=== PATIENT | female | born 1945 | race Caucasian/White ===

== ENCOUNTER 2022-03-30 11:44 | Inpatient (IN) | payer MEDICARE, OTHER ==
[2022-03-30 12:04] LABS: #Eosinphils 0.1 thou/uL (0.0-0.7); #Lymphocytes 1.9 thou/uL (1.20-3.40); #Monocytes 0.8 thou/uL (0.11-0.59); #Neutrophils 7.5 thou/uL (1.40-6.50); %Basophils 0.2 % (0.0-1.0); %Eosinophils 0.8 % (0.0-10.0); %Lymphocytes 18.7 % (21.0-51.0); %Monocytes 7.8 % (0.0-10.0); %Neutrophils 72.5 % (42.0-75.0); Hemoglobin 14.6 g/dL (12.0-16.0); Mean Corpuscular HGB CONC 32.4 g/dL (32.0-36.0); Mean Corpuscular Hemoglobin 31.2 pg (27.0-31.0); Mean Corpuscular Volume 96.1 fL (78.0-98.0); Mean Platelet Volume 7.6 fL (7.4-10.4); Platelet Count 331 thou/uL (130-400); RBC Distribution Width 12.9 % (11.5-14.5); Red Blood Cell (RBC) Count 4.69 mill/uL (4.20-5.40); White Blood Cell (WBC) Count 10.3 thou/uL (4.8-10.8)
[2022-03-30] MEDS ORDERED: Labetalol HCl 100 MG/20 ML VIAL ONE ×2 (12:07→13:20)
[2022-03-30] MEDS ORDERED: Tenecteplase 50 MG - STEMI KIT ONE (12:07)
[2022-03-30 12:19] LABS: Prothrombin Time 13.3 sec (12.0-14.7)
[2022-03-30 12:20] LABS: PTT 25.4 sec (22.9-36.1)
[2022-03-30 12:48] LABS: Albumin 4.2 g/dL (3.4-4.8)
[2022-03-30 12:50] LABS: Calcium 9.9 mg/dL (7.8-10.44); Chloride 104 mmol/L (98-107); Potassium 3.8 mmol/L (3.5-5.1); Sodium 138 mmol/L (136-145)
[2022-03-30 12:51] LABS: Glucose 116 mg/dL (83-110); Protein, Total 7.2 g/dL (5.8-8.1)
[2022-03-30 12:52] LABS: Anion Gap 18 mmol/L (10-20); Carbon Dioxide 20 mmol/L (23-31)
[2022-03-30 12:53] LABS: Bilirubin, Total 0.4 mg/dL (0.2-1.2)
[2022-03-30 12:54] LABS: Alkaline Phosphatase 54 U/L (40-110); Calc. Creatinine Clearance 0 mL/min (70-130); Estimated GFR 77
[2022-03-30 12:55] LABS: BUN (Urea Nitrogen) 20 mg/dL (9.8-20.1)
[2022-03-30 12:56] LABS: AST (SGOT) 18 U/L (5-34)
[2022-03-30 12:57] LABS: ALT (SGPT) 11 U/L (8-55)
[2022-03-30 13:11] LABS: SARS-CoV-2 NAA Rapid Test Not Detected (NotDetected)
[2022-03-30] MEDS ORDERED: niCARdipine 25 MG/10 ML VIAL ONE (13:49)
[2022-03-30] MEDS ORDERED: Iopamidol 370 76% 50 ML VIAL FS ONE (14:31)
[2022-03-30] MEDS ORDERED: methylPREDNISolone Sod Succ/PF 125 MG/2 ML VIAL IVP SCH (17:00)
[2022-03-30] MEDS ORDERED: diphenhydrAMINE 50 MG/ML VIAL IVP SCH (17:00)
[2022-03-30] MEDS: Famotidine/PF 20 mg/2ml Vial SLOW IVP SCH (17:07)
[2022-03-30] MEDS ORDERED: Racepinephrine 2.25% 0.5 ML NEB ONE (17:07)
[2022-03-30] MEDS: Fluticasone Propionate Nasal Spray 16 gm Bottle NASAL SCH (17:11)
[2022-03-30] MEDS ORDERED: Racepinephrine 2.25% 0.5 ML NEB NEB SCH (17:30)
[2022-03-30] MEDS: Communication Order-Pharmacy FS SCH (18:27)
[2022-03-30] MEDS: Sodium Chloride 0.9% 1,000 ML IV SCH (18:50)
[2022-03-30] MEDS: hydrALAZINE 20 MG/ML VIAL SLOW IVP PRN (19:52)
[2022-03-30] MEDS: Atorvastatin Calcium 40 MG TAB PO SCH (21:29)
[2022-03-31] MEDS: hydrALAZINE 20 MG/ML VIAL SLOW IVP PRN ×2 (03:35→15:18)
[2022-03-31 03:53] LABS: #Lymphocytes 1.2 thou/uL (1.20-3.40); #Monocytes 0.1 thou/uL (0.11-0.59); #Neutrophils 10.5 thou/uL (1.40-6.50); %Basophils 0.3 % (0.0-1.0); %Eosinophils 0.1 % (0.0-10.0); %Lymphocytes 9.8 % (21.0-51.0); %Neutrophils 88.9 % (42.0-75.0); Mean Corpuscular HGB CONC 32.5 g/dL (32.0-36.0); Mean Corpuscular Hemoglobin 31.5 pg (27.0-31.0); Mean Corpuscular Volume 96.8 fL (78.0-98.0); Mean Platelet Volume 7.8 fL (7.4-10.4); Platelet Count 349 thou/uL (130-400); Red Blood Cell (RBC) Count 4.76 mill/uL (4.20-5.40); White Blood Cell (WBC) Count 11.9 thou/uL (4.8-10.8)
[2022-03-31 04:04] LABS: Hemoglobin A1c 5.6 % (4.0-6.0)
[2022-03-31 04:05] LABS: Anion Gap 20 mmol/L (10-20); BUN (Urea Nitrogen) 17 mg/dL (9.8-20.1); Calc. Creatinine Clearance 49 mL/min (70-130); Calcium 9.5 mg/dL (7.8-10.44); Carbon Dioxide 21 mmol/L (23-31); Cholesterol 230 mg/dl (< 200 Desired); Estimated GFR 71; HDL Cholesterol 57 mg/dL (>60 Neg Risk); LDL Cholesterol, Calculated 156 mg/dL; Potassium 4.8 mmol/L (3.5-5.1); Triglycerides 83 mg/dL (Less than 150)
[2022-03-31 04:06] LABS: Chloride 105 mmol/L (98-107); Glucose 199 mg/dL (83-110); Sodium 141 mmol/L (136-145)
[2022-03-31] MEDS: Sodium Chloride 0.9% 1,000 ML IV SCH ×2 (06:47→14:00)
[2022-03-31] MEDS ORDERED: FLU VACC QS2022-23(65YR UP)/PF 240 MCG/0.7 ML SYRINGE IM ONE (09:00)
[2022-03-31] MEDS: Labetalol HCl 100 MG/20 ML VIAL SLOW IVP PRN ×2 (13:04→14:57)
[2022-03-31] MEDS ORDERED: Aspirin 300 MG Suppository PR SCH (15:00)
[2022-03-31] MEDS: Famotidine/PF 20 mg/2ml Vial SLOW IVP SCH (18:14)
[2022-03-31] MEDS: Communication Order-Pharmacy FS SCH (18:24)
[2022-03-31] MEDS: Atorvastatin Calcium 40 MG TAB PO SCH (19:43)
[2022-04-01] MEDS: Labetalol HCl 100 MG/20 ML VIAL SLOW IVP PRN ×3 (00:06→21:16)
[2022-04-01] MEDS: Sodium Chloride 0.9% 1,000 ML IV SCH ×2 (02:06→17:07)
[2022-04-01] MEDS: hydrALAZINE 20 MG/ML VIAL SLOW IVP PRN ×3 (07:38→23:09)
[2022-04-01] MEDS: Aspirin 300 MG Suppository PR SCH (08:52)
[2022-04-01] MEDS ORDERED: Enoxaparin Sodium 40 MG/0.4 ML SYRINGE SC SCH (09:45)
[2022-04-01 09:59] LABS: #Lymphocytes 1.4 thou/uL (1.20-3.40); #Monocytes 1.2 thou/uL (0.11-0.59); #Neutrophils 15.1 thou/uL (1.40-6.50); %Basophils 0.1 % (0.0-1.0); %Eosinophils 0.2 % (0.0-10.0); %Lymphocytes 7.9 % (21.0-51.0); %Monocytes 6.6 % (0.0-10.0); %Neutrophils 85.3 % (42.0-75.0); Hemoglobin 14.9 g/dL (12.0-16.0); Mean Corpuscular HGB CONC 32.5 g/dL (32.0-36.0); Mean Corpuscular Hemoglobin 31.3 pg (27.0-31.0); Mean Corpuscular Volume 96.2 fL (78.0-98.0); Mean Platelet Volume 7.7 fL (7.4-10.4); Platelet Count 298 thou/uL (130-400); RBC Distribution Width 13.1 % (11.5-14.5); Red Blood Cell (RBC) Count 4.77 mill/uL (4.20-5.40); White Blood Cell (WBC) Count 17.7 thou/uL (4.8-10.8)
[2022-04-01 10:17] LABS: Anion Gap 16 mmol/L (10-20); BUN (Urea Nitrogen) 16 mg/dL (9.8-20.1); Calc. Creatinine Clearance 64 mL/min (70-130); Carbon Dioxide 19 mmol/L (23-31); Chloride 107 mmol/L (98-107); Estimated GFR 91; Glucose 123 mg/dL (83-110); Potassium 3.7 mmol/L (3.5-5.1); Sodium 138 mmol/L (136-145)
[2022-04-01] MEDS ORDERED: Famotidine/PF 20 mg/2ml Vial SLOW IVP SCH (11:45)
[2022-04-01] MEDS ORDERED: Mannitol 12.5 GM/50 ML SLOW IVP SCH (13:30)
[2022-04-01] MEDS: Fluticasone Propionate Nasal Spray 16 gm Bottle NASAL SCH (17:06)
[2022-04-01] MEDS: Atorvastatin Calcium 40 MG TAB PO SCH (20:47)
[2022-04-01] MEDS ORDERED: Sodium Bicarbonate Tab 325 MG TAB PER TUBE PRN (21:00)
[2022-04-01] MEDS ORDERED: Pancrelipase DR 12,000 1 CAP FS PRN (21:00)
[2022-04-01] MEDS: Famotidine/PF 20 mg/2ml Vial SLOW IVP SCH (21:16)
[2022-04-02] MEDS: Labetalol HCl 100 MG/20 ML VIAL SLOW IVP PRN ×5 (03:02→16:14)
[2022-04-02] MEDS: Sodium Chloride 0.9% 1,000 ML IV SCH ×2 (03:07→23:34)
[2022-04-02] MEDS: hydrALAZINE 20 MG/ML VIAL SLOW IVP PRN ×3 (04:14→11:39)
[2022-04-02] MEDS: Aspirin 300 MG Suppository PR SCH ×2 (08:16→10:33)
[2022-04-02] MEDS: Enoxaparin Sodium 40 MG/0.4 ML SYRINGE SC SCH (08:16)
[2022-04-02] MEDS: Famotidine/PF 20 mg/2ml Vial SLOW IVP SCH ×2 (08:16→20:22)
[2022-04-02] MEDS ORDERED: Lisinopril 20 MG TAB PO SCH (09:45)
[2022-04-02] MEDS ORDERED: Aspirin Chewable 81 MG TAB PER TUBE SCH (09:45)
[2022-04-02] MEDS ORDERED: Metoprolol Tartrate 25 MG TAB PER TUBE SCH (10:00)
[2022-04-02] MEDS ORDERED: Amlodipine 5 MG TAB PO SCH (11:30)
[2022-04-02 17:42] LABS: Actual Bicarbonate (HCO3a) 20.2 mEq/L (22-28); Base Excess (BEa) -1.3 mEq/L (-2.0 to +3.0); CO2 Tension 26.3 mmHg (35.0-45.0); Calcium, Ionized (arterial) 1.15 mmol/L (1.12-1.30); Carboxyhemoglobin (COHb) 0.7 gm% (0.0-3.0); Hemoglobin (Hb) 14.8 g/dL (12.0-16.0); Potassium - ABG Lab 3.27 mmol/L (3.70-5.30)
[2022-04-02] MEDS ORDERED: Lorazepam 2 MG/ML VIAL SLOW IVP SCH (17:45)
[2022-04-02] MEDS ORDERED: EPINEPHrine 1 MG/10 ML Abboject SYRINGE IVP SCH (17:45)
[2022-04-02 17:47] LABS: ALV-art Gradient 57.555 mmHg (0-20); O2 Tension (PaO2), arterial 59.3 mmHg (> 70.0); Puncture Site RRA
[2022-04-02] MEDS ORDERED: EPINEPHrine 1 MG/ML AMP IM SCH (18:00)
[2022-04-02] MEDS ORDERED: methylPREDNISolone Sod Succ/PF 125 MG/2 ML VIAL IVP SCH (18:00)
[2022-04-02] MEDS ORDERED: diphenhydrAMINE 50 MG/ML VIAL IVP SCH (18:00)
[2022-04-02] MEDS: Fluticasone Propionate Nasal Spray 16 gm Bottle NASAL SCH (18:44)
[2022-04-02] MEDS: niCARdipine 25 MG in Sodium Chloride 0.9% 250 ML 250 ML IVPB PRN (20:00)
[2022-04-02] MEDS: Metoprolol Tartrate 25 MG TAB PER TUBE SCH (20:22)
[2022-04-02] MEDS: Atorvastatin Calcium 40 MG TAB PO SCH (20:24)
[2022-04-02] MEDS: Racepinephrine 2.25% 0.5 ML NEB NEB SCH (22:20)
[2022-04-02] MEDS: methylPREDNISolone Sod Succ 40 MG VIAL IVP SCH (23:34)
[2022-04-03] MEDS: methylPREDNISolone Sod Succ 40 MG VIAL IVP SCH ×3 (06:05→18:12)
[2022-04-03] MEDS: niCARdipine 25 MG in Sodium Chloride 0.9% 250 ML 250 ML IVPB PRN (06:05)
[2022-04-03] MEDS: Racepinephrine 2.25% 0.5 ML NEB NEB SCH (06:53)
[2022-04-03] MEDS ORDERED: Amlodipine 5 MG TAB PO SCH (09:00)
[2022-04-03] MEDS ORDERED: methylPREDNISolone Sod Succ/PF 125 MG/2 ML VIAL IVP SCH (09:00)
[2022-04-03 09:14] LABS: #Lymphocytes 0.9 thou/uL (1.20-3.40); #Monocytes 0.4 thou/uL (0.11-0.59); #Neutrophils 10.7 thou/uL (1.40-6.50); %Basophils 0.2 % (0.0-1.0); %Eosinophils 0.1 % (0.0-10.0); %Lymphocytes 7.2 % (21.0-51.0); %Monocytes 3.1 % (0.0-10.0); %Neutrophils 89.3 % (42.0-75.0); Hemoglobin 14.2 g/dL (12.0-16.0); Mean Corpuscular HGB CONC 34.2 g/dL (32.0-36.0); Mean Corpuscular Hemoglobin 32.8 pg (27.0-31.0); Platelet Count 312 thou/uL (130-400); Red Blood Cell (RBC) Count 4.31 mill/uL (4.20-5.40)
[2022-04-03 09:24] LABS: Anion Gap 14 mmol/L (10-20); BUN (Urea Nitrogen) 23 mg/dL (9.8-20.1); Calc. Creatinine Clearance 74 mL/min (70-130); Calcium 8.5 mg/dL (7.8-10.44); Carbon Dioxide 20 mmol/L (23-31); Chloride 109 mmol/L (98-107); Estimated GFR 93; Glucose 152 mg/dL (83-110); Potassium 3.1 mmol/L (3.5-5.1); Sodium 140 mmol/L (136-145)
[2022-04-03] MEDS: Amlodipine 5 MG TAB PO SCH (09:49)
[2022-04-03] MEDS: Metoprolol Tartrate 25 MG TAB PER TUBE SCH ×2 (09:50→20:23)
[2022-04-03] MEDS: Lisinopril 20 MG TAB PO SCH (09:50)
[2022-04-03] MEDS: Famotidine/PF 20 mg/2ml Vial SLOW IVP SCH ×2 (09:50→20:22)
[2022-04-03] MEDS: Aspirin Chewable 81 MG TAB PER TUBE SCH (09:50)
[2022-04-03] MEDS: Enoxaparin Sodium 40 MG/0.4 ML SYRINGE SC SCH (09:51)
[2022-04-03] MEDS: Sodium Chloride 0.9% 1,000 ML IV SCH (11:47)
[2022-04-03] MEDS ORDERED: Electrolyte Replacement Protocol FS PRN (12:10)
[2022-04-03] MEDS ORDERED: Potassium Chloride 20 MEQ TAB PER TUBE SCH (12:30)
[2022-04-03] MEDS: Potassium Chloride 20 MEQ in Premix Bag 1 BAG IVPB SCH ×2 (15:00→15:54)
[2022-04-03] MEDS: Fluticasone Propionate Nasal Spray 16 gm Bottle NASAL SCH (18:14)
[2022-04-03] MEDS: Labetalol HCl 100 MG/20 ML VIAL SLOW IVP PRN (20:22)
[2022-04-03] MEDS: Atorvastatin Calcium 40 MG TAB PO SCH (20:23)
[2022-04-03 20:49] LABS: Potassium 3.5 mmol/L (3.5-5.1)
[2022-04-03] MEDS: hydrALAZINE 20 MG/ML VIAL SLOW IVP PRN (21:27)
[2022-04-04] MEDS: methylPREDNISolone Sod Succ 40 MG VIAL IVP SCH ×4 (00:37→16:58)
[2022-04-04] MEDS: Sodium Chloride 0.9% 1,000 ML IV SCH (00:37)
[2022-04-04] MEDS: Labetalol HCl 100 MG/20 ML VIAL SLOW IVP PRN (01:09)
[2022-04-04 04:10] LABS: Phosphorus 2.3 mg/dL (2.3-4.7)
[2022-04-04 04:11] LABS: Anion Gap 14 mmol/L (10-20); BUN (Urea Nitrogen) 31 mg/dL (9.8-20.1); Calc. Creatinine Clearance 63 mL/min (70-130); Calcium 8.9 mg/dL (7.8-10.44); Carbon Dioxide 21 mmol/L (23-31); Chloride 110 mmol/L (98-107); Estimated GFR 89; Glucose 175 mg/dL (83-110); Magnesium 2.3 mg/dL (1.6-2.6); Potassium 3.4 mmol/L (3.5-5.1); Sodium 142 mmol/L (136-145)
[2022-04-04] MEDS: hydrALAZINE 20 MG/ML VIAL SLOW IVP PRN ×2 (04:16→17:02)
[2022-04-04 04:21] LABS: Band 8 % (5-11); Hemoglobin 14.1 g/dL (12.0-16.0); Lymphocytes 7 % (21-51); MDiff Complete? YES; Mean Corpuscular HGB CONC 33.6 g/dL (32.0-36.0); Mean Corpuscular Hemoglobin 32.7 pg (27.0-31.0); Mean Corpuscular Volume 97.3 fL (78.0-98.0); Mean Platelet Volume 8.5 fL (7.4-10.4); Monocytes 2 % (0-10); Neutrophil 83 % (42-75); Platelet Count 336 thou/uL (130-400); Platelet Morphology Comment Appears Adequate; RBC Morphology Normal; White Blood Cell (WBC) Count 15.1 thou/uL (4.8-10.8)
[2022-04-04] MEDS ORDERED: Potassium Chloride 20 MEQ TAB PO SCH (08:00)
[2022-04-04] MEDS: Enoxaparin Sodium 40 MG/0.4 ML SYRINGE SC SCH (08:32)
[2022-04-04] MEDS: Famotidine/PF 20 mg/2ml Vial SLOW IVP SCH (08:32)
[2022-04-04] MEDS: Aspirin Chewable 81 MG TAB PER TUBE SCH (08:32)
[2022-04-04] MEDS: Amlodipine 5 MG TAB PO SCH (08:32)
[2022-04-04] MEDS: Lisinopril 20 MG TAB PO SCH (08:32)
[2022-04-04] MEDS: Metoprolol Tartrate 25 MG TAB PER TUBE SCH ×2 (08:33→20:48)
[2022-04-04] MEDS: Fluticasone Propionate Nasal Spray 16 gm Bottle NASAL SCH (16:58)
[2022-04-04] MEDS: Famotidine 20 MG TAB PER TUBE SCH (20:47)
[2022-04-04] MEDS: Atorvastatin Calcium 40 MG TAB PO SCH (20:47)
[2022-04-04] MEDS: Acetaminophen 650 MG/20.3 ML UDCUP PO PRN (20:48)
[2022-04-05] MEDS: Scopolamine 1.5 mg/72 hour Patch TD SCH (00:24)
[2022-04-05] MEDS: methylPREDNISolone Sod Succ 40 MG VIAL IVP SCH ×4 (00:25→17:41)
[2022-04-05] MEDS: Labetalol HCl 100 MG/20 ML VIAL SLOW IVP PRN ×3 (02:12→20:12)
[2022-04-05 04:14] LABS: Anion Gap 13 mmol/L (10-20); BUN (Urea Nitrogen) 43 mg/dL (9.8-20.1); Calc. Creatinine Clearance 63 mL/min (70-130); Calcium 8.7 mg/dL (7.8-10.44); Carbon Dioxide 24 mmol/L (23-31); Chloride 112 mmol/L (98-107); Estimated GFR 89; Glucose 183 mg/dL (83-110); Potassium 3.5 mmol/L (3.5-5.1); Sodium 145 mmol/L (136-145)
[2022-04-05] MEDS: hydrALAZINE 20 MG/ML VIAL SLOW IVP PRN ×2 (04:41→21:46)
[2022-04-05] MEDS ORDERED: Potassium Chloride 20 MEQ TAB PO SCH (08:00)
[2022-04-05] MEDS: Amlodipine 5 MG TAB PO SCH (08:09)
[2022-04-05] MEDS: Aspirin Chewable 81 MG TAB PER TUBE SCH (08:09)
[2022-04-05] MEDS: Famotidine 20 MG TAB PER TUBE SCH ×2 (08:09→20:11)
[2022-04-05] MEDS: Enoxaparin Sodium 40 MG/0.4 ML SYRINGE SC SCH (08:10)
[2022-04-05] MEDS: Lisinopril 20 MG TAB PO SCH (08:10)
[2022-04-05] MEDS: Metoprolol Tartrate 25 MG TAB PER TUBE SCH ×2 (08:10→20:11)
[2022-04-05 12:12] LABS: Potassium 3.8 mmol/L (3.5-5.1)
[2022-04-05] MEDS: Fluticasone Propionate Nasal Spray 16 gm Bottle NASAL SCH (18:28)
[2022-04-05] MEDS: Atorvastatin Calcium 40 MG TAB PO SCH (20:11)
[2022-04-05] MEDS: Acetaminophen 650 MG/20.3 ML UDCUP PO PRN (20:11)
[2022-04-05] MEDS: Polyethylene Glycol 3350 17 GM Packet PO SCH (20:12)
[2022-04-05] MEDS: Senokot S 8.6-50 MG TAB PO SCH (20:12)
[2022-04-06] MEDS: methylPREDNISolone Sod Succ 40 MG VIAL IVP SCH ×4 (02:29→16:37)
[2022-04-06] MEDS: Labetalol HCl 100 MG/20 ML VIAL SLOW IVP PRN ×4 (04:17→20:22)
[2022-04-06 05:15] LABS: Band 3 % (5-11); Hemoglobin 14.1 g/dL (12.0-16.0); Lymphocytes 12 % (21-51); MDiff Complete? YES; Mean Corpuscular HGB CONC 32.9 g/dL (32.0-36.0); Mean Corpuscular Hemoglobin 32.2 pg (27.0-31.0); Mean Corpuscular Volume 97.9 fL (78.0-98.0); Mean Platelet Volume 8.5 fL (7.4-10.4); Metamyelocyte 1 % (0-0); Monocytes 15 % (0-10); Neutrophil 69 % (42-75); Platelet Count 339 thou/uL (130-400); Platelet Morphology Comment Appears Adequate; RBC Distribution Width 13.2 % (11.5-14.5); RBC Morphology Normal; Red Blood Cell (RBC) Count 4.38 mill/uL (4.20-5.40); White Blood Cell (WBC) Count 11.9 thou/uL (4.8-10.8)
[2022-04-06] MEDS: hydrALAZINE 20 MG/ML VIAL SLOW IVP PRN ×2 (05:29→22:07)
[2022-04-06 07:56] LABS: Anion Gap 13 mmol/L (10-20); BUN (Urea Nitrogen) 42 mg/dL (9.8-20.1); Calc. Creatinine Clearance 62 mL/min (70-130); Calcium 8.3 mg/dL (7.8-10.44); Carbon Dioxide 25 mmol/L (23-31); Chloride 114 mmol/L (98-107); Estimated GFR 89; Glucose 185 mg/dL (83-110); Potassium 3.5 mmol/L (3.5-5.1); Sodium 148 mmol/L (136-145)
[2022-04-06] MEDS ORDERED: Potassium Chloride 20 MEQ TAB PO SCH (09:00)
[2022-04-06] MEDS: Acetaminophen 650 MG/20.3 ML UDCUP PO PRN ×2 (09:36→18:17)
[2022-04-06] MEDS: Amlodipine 5 MG TAB PO SCH (09:36)
[2022-04-06] MEDS: Aspirin Chewable 81 MG TAB PER TUBE SCH (09:36)
[2022-04-06] MEDS: Famotidine 20 MG TAB PER TUBE SCH ×2 (09:37→21:21)
[2022-04-06] MEDS: Metoprolol Tartrate 25 MG TAB PER TUBE SCH ×2 (09:38→21:21)
[2022-04-06] MEDS: Lisinopril 20 MG TAB PO SCH (09:38)
[2022-04-06] MEDS: Enoxaparin Sodium 40 MG/0.4 ML SYRINGE SC SCH (09:39)
[2022-04-06] MEDS: Senokot S 8.6-50 MG TAB PO SCH ×2 (09:41→21:26)
[2022-04-06] MEDS: Potassium Chloride 20 MEQ in Premix Bag 1 BAG IVPB SCH ×2 (14:10→16:36)
[2022-04-06] MEDS: Fluticasone Propionate Nasal Spray 16 gm Bottle NASAL SCH (16:37)
[2022-04-06] MEDS: Ampicillin/Sulbactam 1.5 GM in Sodium Chloride 0.9% 100 ML IVPB SCH ×2 (18:17→21:22)
[2022-04-06] MEDS: Atorvastatin Calcium 40 MG TAB PO SCH (21:21)
[2022-04-06] MEDS: Polyethylene Glycol 3350 17 GM Packet PO SCH (21:23)
[2022-04-07] MEDS: methylPREDNISolone Sod Succ 40 MG VIAL IVP SCH ×4 (00:07→18:00)
[2022-04-07] MEDS: Labetalol HCl 100 MG/20 ML VIAL SLOW IVP PRN ×4 (02:31→20:54)
[2022-04-07] MEDS: Ampicillin/Sulbactam 1.5 GM in Sodium Chloride 0.9% 100 ML IVPB SCH ×4 (03:02→21:23)
[2022-04-07] MEDS: Acetaminophen 650 MG/20.3 ML UDCUP PO PRN ×2 (03:14→15:49)
[2022-04-07] MEDS: hydrALAZINE 20 MG/ML VIAL SLOW IVP PRN ×3 (04:16→22:12)
[2022-04-07] MEDS: Lisinopril 20 MG TAB PO SCH (08:55)
[2022-04-07] MEDS: Metoprolol Tartrate 25 MG TAB PER TUBE SCH ×2 (08:55→21:26)
[2022-04-07] MEDS: Aspirin Chewable 81 MG TAB PER TUBE SCH (08:55)
[2022-04-07] MEDS: Amlodipine 5 MG TAB PO SCH (08:55)
[2022-04-07] MEDS: Famotidine 20 MG TAB PER TUBE SCH ×2 (08:55→21:25)
[2022-04-07] MEDS: Enoxaparin Sodium 40 MG/0.4 ML SYRINGE SC SCH (08:56)
[2022-04-07] MEDS: Senokot S 8.6-50 MG TAB PO SCH ×2 (08:59→21:26)
[2022-04-07] MEDS ORDERED: Labetalol HCl 100 MG/20 ML VIAL ONE (10:34)
[2022-04-07] MEDS ORDERED: PROPOFOL 200 MG/20 ML VIAL ONE (11:20)
[2022-04-07] MEDS ORDERED: Promethazine HCl 25 MG/ML VIAL IM PRN (11:50)
[2022-04-07] MEDS ORDERED: Ondansetron HCl/PF 4 MG/2 ML Vial IVP PRN (11:50)
[2022-04-07] MEDS ORDERED: Promethazine HCl 25 MG/ML VIAL IVPB PRN (11:50)
[2022-04-07] MEDS ORDERED: Ketamine 50 MG/ML (10ML VIAL) ONE (11:51)
[2022-04-07] MEDS: Fluticasone Propionate Nasal Spray 16 gm Bottle NASAL SCH (15:51)
[2022-04-07] MEDS: Atorvastatin Calcium 40 MG TAB PO SCH (21:25)
[2022-04-07] MEDS: Polyethylene Glycol 3350 17 GM Packet PO SCH (21:26)
[2022-04-08] MEDS: methylPREDNISolone Sod Succ 40 MG VIAL IVP SCH ×5 (00:58→23:07)
[2022-04-08] MEDS: Scopolamine 1.5 mg/72 hour Patch TD SCH (01:06)
[2022-04-08] MEDS: hydrALAZINE 20 MG/ML VIAL SLOW IVP PRN ×3 (02:07→16:54)
[2022-04-08] MEDS: Ampicillin/Sulbactam 1.5 GM in Sodium Chloride 0.9% 100 ML IVPB SCH ×4 (04:05→21:47)
[2022-04-08] MEDS: Labetalol HCl 100 MG/20 ML VIAL SLOW IVP PRN (04:06)
[2022-04-08] MEDS: Metoprolol Tartrate 25 MG TAB PER TUBE SCH ×2 (09:29→21:49)
[2022-04-08] MEDS: Famotidine 20 MG TAB PER TUBE SCH ×2 (09:29→21:48)
[2022-04-08] MEDS: Amlodipine 5 MG TAB PO SCH (09:30)
[2022-04-08] MEDS: Enoxaparin Sodium 40 MG/0.4 ML SYRINGE SC SCH (09:31)
[2022-04-08] MEDS: Aspirin Chewable 81 MG TAB PER TUBE SCH (09:31)
[2022-04-08] MEDS: Lisinopril 20 MG TAB PO SCH (09:31)
[2022-04-08] MEDS: Acetaminophen 650 MG/20.3 ML UDCUP PO PRN (09:32)
[2022-04-08] MEDS: Senokot S 8.6-50 MG TAB PO SCH ×2 (09:34→21:48)
[2022-04-08] MEDS: Fluticasone Propionate Nasal Spray 16 gm Bottle NASAL SCH (16:43)
[2022-04-08] MEDS: Atorvastatin Calcium 40 MG TAB PO SCH (21:48)
[2022-04-08] MEDS: Polyethylene Glycol 3350 17 GM Packet PO SCH (21:49)
[2022-04-08 22:45] LABS: Hemoglobin 13.9 g/dL (12.0-16.0); Mean Corpuscular HGB CONC 31.8 g/dL (32.0-36.0); Mean Corpuscular Hemoglobin 31.3 pg (27.0-31.0); Mean Corpuscular Volume 98.4 fL (78.0-98.0); Mean Platelet Volume 8.3 fL (7.4-10.4); Platelet Count 346 thou/uL (130-400); RBC Distribution Width 13.2 % (11.5-14.5); Red Blood Cell (RBC) Count 4.45 mill/uL (4.20-5.40); White Blood Cell (WBC) Count 17.1 thou/uL (4.8-10.8)
[2022-04-08] MEDS: Acetaminophen 325 MG/10.15 ML UDCUP PO PRN (22:54)
[2022-04-08 23:15] LABS: Lymphocytes 10 % (21-51); MDiff Complete? YES; Monocytes 5 % (0-10); Neutrophil 85 % (42-75); RBC Morphology Normal; Vacuoles SLIGHT
[2022-04-09] MEDS: Ampicillin/Sulbactam 1.5 GM in Sodium Chloride 0.9% 100 ML IVPB SCH ×4 (03:59→21:27)
[2022-04-09] MEDS: methylPREDNISolone Sod Succ 40 MG VIAL IVP SCH ×3 (06:20→17:04)
[2022-04-09] MEDS: Famotidine 20 MG TAB PER TUBE SCH ×2 (09:39→21:27)
[2022-04-09] MEDS: Amlodipine 5 MG TAB PO SCH (09:39)
[2022-04-09] MEDS: Aspirin Chewable 81 MG TAB PER TUBE SCH (09:39)
[2022-04-09] MEDS: Metoprolol Tartrate 25 MG TAB PER TUBE SCH ×2 (09:40→21:27)
[2022-04-09] MEDS: Enoxaparin Sodium 40 MG/0.4 ML SYRINGE SC SCH (09:40)
[2022-04-09] MEDS: Lisinopril 20 MG TAB PO SCH (09:40)
[2022-04-09] MEDS: Acetaminophen 325 MG/10.15 ML UDCUP PO PRN ×2 (09:41→16:53)
[2022-04-09] MEDS: Senokot S 8.6-50 MG TAB PO SCH ×2 (09:42→21:27)
[2022-04-09] MEDS: Fluticasone Propionate Nasal Spray 16 gm Bottle NASAL SCH (17:05)
[2022-04-09] MEDS ORDERED: Dextrose 5% in Water 1,000 ML IV PRN (20:00)
[2022-04-09] MEDS ORDERED: Dextrose 50% Abboject 50 ML SYRINGE IVP PRN (20:00)
[2022-04-09] MEDS ORDERED: Morphine 4 MG/ML VIAL SLOW IVP SCH (21:00)
[2022-04-09] MEDS: Atorvastatin Calcium 40 MG TAB PO SCH (21:27)
[2022-04-09] MEDS: Polyethylene Glycol 3350 17 GM Packet PO SCH (21:51)
[2022-04-10] MEDS: methylPREDNISolone Sod Succ 40 MG VIAL IVP SCH ×4 (00:23→17:16)
[2022-04-10] MEDS: HumaLOG 300 UNITS/3 ML VIAL SC PRN ×2 (00:26→06:40)
[2022-04-10] MEDS: Ampicillin/Sulbactam 1.5 GM in Sodium Chloride 0.9% 100 ML IVPB SCH ×4 (03:34→21:26)
[2022-04-10] MEDS: Amlodipine 5 MG TAB PO SCH (09:09)
[2022-04-10] MEDS: Senokot S 8.6-50 MG TAB PO SCH ×2 (09:09→21:28)
[2022-04-10] MEDS: Metoprolol Tartrate 25 MG TAB PER TUBE SCH ×2 (09:10→21:26)
[2022-04-10] MEDS: Lisinopril 20 MG TAB PO SCH (09:10)
[2022-04-10] MEDS: Aspirin Chewable 81 MG TAB PER TUBE SCH (09:10)
[2022-04-10] MEDS: Famotidine 20 MG TAB PER TUBE SCH ×2 (09:10→21:26)
[2022-04-10] MEDS: Enoxaparin Sodium 40 MG/0.4 ML SYRINGE SC SCH (09:10)
[2022-04-10] MEDS: Acetaminophen 325 MG/10.15 ML UDCUP PO PRN ×2 (12:54→21:38)
[2022-04-10] MEDS: Fluticasone Propionate Nasal Spray 16 gm Bottle NASAL SCH (17:16)
[2022-04-10] MEDS: Atorvastatin Calcium 40 MG TAB PO SCH (21:26)
[2022-04-10] MEDS: Polyethylene Glycol 3350 17 GM Packet PO SCH (21:28)
[2022-04-11] MEDS: methylPREDNISolone Sod Succ 40 MG VIAL IVP SCH ×3 (00:08→13:44)
[2022-04-11] MEDS: HumaLOG 300 UNITS/3 ML VIAL SC PRN ×2 (00:08→06:11)
[2022-04-11] MEDS: Scopolamine 1.5 mg/72 hour Patch TD SCH (02:29)
[2022-04-11] MEDS: Ampicillin/Sulbactam 1.5 GM in Sodium Chloride 0.9% 100 ML IVPB SCH ×4 (02:30→21:33)
[2022-04-11] MEDS: Acetaminophen 325 MG/10.15 ML UDCUP PO PRN ×2 (06:06→18:39)
[2022-04-11] MEDS: Lisinopril 20 MG TAB PO SCH (09:25)
[2022-04-11] MEDS: Aspirin Chewable 81 MG TAB PER TUBE SCH (09:25)
[2022-04-11] MEDS: Famotidine 20 MG TAB PER TUBE SCH ×2 (09:25→23:28)
[2022-04-11] MEDS: Amlodipine 5 MG TAB PO SCH (09:25)
[2022-04-11] MEDS: Enoxaparin Sodium 40 MG/0.4 ML SYRINGE SC SCH (09:26)
[2022-04-11] MEDS: Metoprolol Tartrate 25 MG TAB PER TUBE SCH ×2 (09:26→21:00)
[2022-04-11] MEDS: Senokot S 8.6-50 MG TAB PO SCH ×2 (09:26→21:32)
[2022-04-11] MEDS ORDERED: Iopamidol-370 76% 500 ML 1 ML ONE (12:16)
[2022-04-11 12:36] VITALS: BMI 23.3
[2022-04-11 13:24] LABS: Anion Gap 16 mmol/L (10-20); BUN (Urea Nitrogen) 59 mg/dL (9.8-20.1); Calc. Creatinine Clearance 48 mL/min (70-130); Calcium 8.3 mg/dL (7.8-10.44); Carbon Dioxide 22 mmol/L (23-31); Chloride 118 mmol/L (98-107); Estimated GFR 61; Glucose 250 mg/dL (83-110); Potassium 3.7 mmol/L (3.5-5.1); Sodium 152 mmol/L (136-145)
[2022-04-11 13:29] LABS: Band 4 % (5-11); Hemoglobin 14.2 g/dL (12.0-16.0); Lymphocytes 3 % (21-51); MDiff Complete? YES; Mean Corpuscular HGB CONC 31.9 g/dL (32.0-36.0); Mean Corpuscular Hemoglobin 31.5 pg (27.0-31.0); Mean Corpuscular Volume 98.6 fL (78.0-98.0); Mean Platelet Volume 8.9 fL (7.4-10.4); Monocytes 11 % (0-10); Neutrophil 82 % (42-75); Platelet Count 319 thou/uL (130-400); Platelet Morphology Comment Appears Adequate; Polychromasia SLIGHT = 2-3 cells (100X) (0-2/hpf); RBC Distribution Width 13.1 % (11.5-14.5); Red Blood Cell (RBC) Count 4.53 mill/uL (4.20-5.40); White Blood Cell (WBC) Count 29.7 thou/uL (4.8-10.8)
[2022-04-11] MEDS ORDERED: traMADol HCl 50 MG TAB PER TUBE PRN (14:52)
[2022-04-11 16:28] VITALS: TEMP 98.7
[2022-04-11] MEDS: Acetylcysteine 10% 100 MG/ML 30 ml Vial INH SCH (18:55)
[2022-04-11] MEDS: Fluticasone Propionate Nasal Spray 16 gm Bottle NASAL SCH (19:17)
[2022-04-11] MEDS ORDERED: Sodium Chloride 0.9% 500 ML IVPB SCH (21:15)
[2022-04-11] MEDS: Polyethylene Glycol 3350 17 GM Packet PO SCH (21:32)
[2022-04-11 22:01] LABS: Hemoglobin 14.2 g/dL (12.0-16.0); Mean Corpuscular Hemoglobin 31.1 pg (27.0-31.0); Mean Platelet Volume 9.2 fL (7.4-10.4); Platelet Count 307 thou/uL (130-400); RBC Distribution Width 13.3 % (11.5-14.5); Red Blood Cell (RBC) Count 4.55 mill/uL (4.20-5.40); White Blood Cell (WBC) Count 32.7 thou/uL (4.8-10.8)
[2022-04-11 22:01] LABS: ALT (SGPT) 331 U/L (8-55); AST (SGOT) 181 U/L (5-34); Alkaline Phosphatase 47 U/L (40-110); Anion Gap 19 mmol/L (10-20); BUN (Urea Nitrogen) 71 mg/dL (9.8-20.1); Bilirubin, Total 0.3 mg/dL (0.2-1.2); Calc. Creatinine Clearance 30 mL/min (70-130); Calcium 8.1 mg/dL (7.8-10.44); Carbon Dioxide 21 mmol/L (23-31); Chloride 120 mmol/L (98-107); Estimated GFR 34; Globulin 2.1 g/dL (2.4-3.5); Glucose 262 mg/dL (83-110); Potassium 3.9 mmol/L (3.5-5.1); Protein, Total 5.1 g/dL (5.8-8.1); Sodium 156 mmol/L (136-145)
[2022-04-11] MEDS: guaiFENesin ER 600 MG TAB PO SCH (23:29)
[2022-04-11] MEDS: Atorvastatin Calcium 40 MG TAB PO SCH (23:29)
[2022-04-12] MEDS: Acetylcysteine 10% 100 MG/ML 30 ml Vial INH SCH ×2 (00:28→06:49)
[2022-04-12 00:55] LABS: Bacteria/HPF None Seen HPF (None Seen); Bilirubin Negative (Negative); Blood, Urine Negative (Negative); Clarity Clear (Clear); Glucose, Urine (Dipstick) Normal (Negative); Ketone, Urine Trace mg/dL (Negative); Leukocyte Negative Leu/uL (Negative); Nitrite Negative (Negative); Protein, Urine (Dipstick) 30 mg/dL (Neg-Trace); Squamous Epithelial None Seen HPF (0-3); Urobilinogen Normal mg/dL (Less than 2); pH, Urine 5.5 (5.0-9.0)
[2022-04-12] MEDS ORDERED: VANCOMYCIN 1.25 GM/250 ML BAG IVPB SCH (01:45)
[2022-04-12] MEDS ORDERED: Piperacillin/Tazobactam 3.375 GM in Sodium Chloride 0.9% 100 ML IVPB SCH ×2 (01:45→06:00)
[2022-04-12] MEDS ORDERED: VANCOMYCIN 1.25 GM/250 ML BAG 1.25 GM in Premix Bag 1 BAG IVPB SCH (02:00)
[2022-04-12] MEDS ORDERED: NOREPINEPHRINE 8 MG/250 ML-D5W 250 ML ONE (02:02)
[2022-04-12 02:34] LABS: Actual Bicarbonate (HCO3a) 17.1 mEq/L (22-28); Base Excess (BEa) -12.9 mEq/L (-2.0 to +3.0); CO2 Tension 58.4 mmHg (35.0-45.0); Calcium, Ionized (arterial) 1.05 mmol/L (1.12-1.30); Carboxyhemoglobin (COHb) 0.2 gm% (0.0-3.0); Hemoglobin (Hb) 11.8 g/dL (12.0-16.0); O2 Tension (PaO2), arterial 107.6 mmHg (> 70.0); Potassium - ABG Lab 3.59 mmol/L (3.70-5.30)
[2022-04-12 03:10] LABS: pH, Arterial 7.09 (7.35-7.45)
[2022-04-12 03:11] LABS: Puncture Site RRA
[2022-04-12] MEDS ORDERED: Sodium Bicarbonate 150 MEQ in Dextrose 5% in Water 1,000 ML IV SCH (03:30)
[2022-04-12] MEDS ORDERED: Sodium Bicarb 50 MEQ/50 ML VIAL IVP SCH ×3 (03:30→11:00)
[2022-04-12] MEDS ORDERED: NOREPINEPHRINE 8 MG/250 ML-D5W 250 ML IVPB PRN (03:33)
[2022-04-12] MEDS ORDERED: Midazolam HCl 2 mg/2 ml Vial SLOW IVP PRN ×2 (03:40→12:07)
[2022-04-12] MEDS ORDERED: Fentanyl CADD 100 ML IV SCH (03:45)
[2022-04-12] MEDS ORDERED: Propofol BOLUS 1,000 MG/100 ML VIAL IV PRN (03:45)
[2022-04-12] MEDS ORDERED: Ventilator Sedation Protocol 1 EACH FS SCH (03:45)
[2022-04-12] MEDS ORDERED: Fentanyl BOLUS 250 ML IVPB PRN (03:45)
[2022-04-12] MEDS ORDERED: DISCONTINUE PREVIOUS NARCOTIC PAIN MEDICATIONS AND BENZODIAZEPINES FS SCH (03:45)
[2022-04-12] MEDS ORDERED: Propofol 1,000 MG/100 ML VIAL IV PRN (03:45)
[2022-04-12] MEDS ORDERED: Morphine 4 MG/ML VIAL SLOW IVP PRN (03:45)
[2022-04-12 04:39] LABS: Lactic Acid 12.9 mmol/L (0.5-2.2)
[2022-04-12] MEDS: EPINEPHrine 4 MG in Dextrose 5% in Water 250 ML IVPB SCH ×2 (04:42→09:52)
[2022-04-12] MEDS ORDERED: Sodium Chloride 0.9% 1,000 ML IV SCH (04:45)
[2022-04-12 05:41] LABS: Hemoglobin 11.5 g/dL (12.0-16.0); Mean Corpuscular HGB CONC 30.6 g/dL (32.0-36.0); Mean Corpuscular Hemoglobin 31.3 pg (27.0-31.0); Mean Platelet Volume 8.9 fL (7.4-10.4); Platelet Count 212 thou/uL (130-400); RBC Distribution Width 13.3 % (11.5-14.5); Red Blood Cell (RBC) Count 3.66 mill/uL (4.20-5.40); White Blood Cell (WBC) Count 9.8 thou/uL (4.8-10.8)
[2022-04-12 05:53] LABS: ALT (SGPT) 2574 U/L (8-55); AST (SGOT) 1818 U/L (5-34); Albumin 1.9 g/dL (3.4-4.8); Alkaline Phosphatase 113 U/L (40-110); Anion Gap 25 mmol/L (10-20); BUN (Urea Nitrogen) 68 mg/dL (9.8-20.1); Bilirubin, Total 0.4 mg/dL (0.2-1.2); Calc. Creatinine Clearance 22 mL/min (70-130); Calcium 6.5 mg/dL (7.8-10.44); Carbon Dioxide 16 mmol/L (23-31); Chloride 122 mmol/L (98-107); Estimated GFR 25; Globulin 1.5 g/dL (2.4-3.5); Glucose 196 mg/dL (83-110); Protein, Total 3.4 g/dL (5.8-8.1); Sodium 159 mmol/L (136-145)
[2022-04-12 06:13] LABS: Band 33 % (5-11); Lymphocytes 27 % (21-51); MDiff Complete? YES; Metamyelocyte 4 % (0-0); Monocytes 6 % (0-10); Myelocyte 4 % (0-0); Neutrophil 26 % (42-75); Nucleated RBC 1 % (0)
[2022-04-12 06:14] LABS: Lactic Acid 13.2 mmol/L (0.5-2.2)
[2022-04-12 07:01] LABS: Actual Bicarbonate (HCO3a) 18.7 mEq/L (22-28); Base Excess (BEa) -10.8 mEq/L (-2.0 to +3.0); CO2 Tension 59.9 mmHg (35.0-45.0); Calcium, Ionized (arterial) 0.91 mmol/L (1.12-1.30); Carboxyhemoglobin (COHb) 0.2 gm% (0.0-3.0); Hemoglobin (Hb) 11.1 g/dL (12.0-16.0); O2 Tension (PaO2), arterial 139.6 mmHg (> 70.0); Potassium - ABG Lab 3.11 mmol/L (3.70-5.30); pH, Arterial 7.11 (7.35-7.45)
[2022-04-12 07:02] LABS: ALV-art Gradient 355.925 mmHg (0-20); Puncture Site Arterial Line
[2022-04-12] MEDS ORDERED: Heparin 25,000 units/D5W 500 ML IVPB SCH (07:15)
[2022-04-12] MEDS ORDERED: Sodium Bicarbonate 70 MEQ in Dextrose 5% in Water 1,000 ML IV SCH (07:15)
[2022-04-12] MEDS ORDERED: Heparin 10,000 UNITS/ 10 ML VIAL SLOW IVP SCH (07:15)
[2022-04-12 07:47] LABS: Hemoglobin 11.3 g/dL (12.0-16.0); Platelet Count 178 thou/uL (130-400)
[2022-04-12] MEDS ORDERED: Hydrocortisone Sod Succ/PF 100 mg/2 ml Vial IVP SCH (08:30)
[2022-04-12] MEDS ORDERED: Famotidine 20 MG TAB PER TUBE SCH (09:00)
[2022-04-12] MEDS ORDERED: methylPREDNISolone Sod Succ 40 MG VIAL IVP SCH (09:00)
[2022-04-12] MEDS: guaiFENesin ER 600 MG TAB PO SCH (09:30)
[2022-04-12] MEDS: Aspirin Chewable 81 MG TAB PER TUBE SCH (09:30)
[2022-04-12 09:31] LABS: Troponin I 0.554 ng/mL (< 0.028)
[2022-04-12] MEDS ORDERED: Sodium Bicarb 50 MEQ/50 ML VIAL ONE (10:34)
[2022-04-12 10:38] VITALS: BP 102/41
[2022-04-12] MEDS: Senokot S 8.6-50 MG TAB PO SCH (10:55)
[2022-04-12 10:57] LABS: Actual Bicarbonate (HCO3a) 19.4 mEq/L (22-28); Base Excess (BEa) -11.7 mEq/L (-2.0 to +3.0); Carboxyhemoglobin (COHb) 0.2 gm% (0.0-3.0); Hemoglobin (Hb) 10.8 g/dL (12.0-16.0); O2 Tension (PaO2), arterial 80.7 mmHg (> 70.0); Potassium - ABG Lab 3.87 mmol/L (3.70-5.30)
[2022-04-12 11:00] LABS: ALV-art Gradient 327.275 mmHg (0-20); CO2 Tension 72.9 mmHg (35.0-45.0); Puncture Site Arterial Line; pH, Arterial 7.04 (7.35-7.45)
[2022-04-12 11:27] LABS: Lactic Acid 15.6 mmol/L (0.5-2.2); Troponin I 0.738 ng/mL (< 0.028)
[2022-04-12] MEDS ORDERED: Morphine 2 MG/ML VIAL SLOW IVP PRN ×2 (12:05→12:12)
[2022-04-12] MEDS ORDERED: Midazolam HCl 2 mg/2 ml Vial ONE (12:18)
[2022-04-13] MEDS ORDERED: Vancomycin HCl 500 MG in Sodium Chloride 0.9% 100 ML IVPB SCH (02:00)
== END 2022-04-12 12:42 | disposition expired | DRG 61 ==
LOC: ERS 11:44 → ERHOLD 13:30 → CCU 16:27 → NEURO 04-02 17:21 → CCU 04-02 18:36 → IMCU/EMU 04-03 15:29 → CCU 04-12 01:54
PROVIDERS: ADMIT Internal Medicine; ATTEND Internal Medicine
PROC: 3E03317 Introduction of Other Thrombolytic into Peripheral Vein, Percutaneous Approach (ICD-10-PCS; principal; 2022-03-30)
PROC: 0DH67UZ Insertion of Feeding Device into Stomach, Via Natural or Artificial Opening (ICD-10-PCS; 2022-03-30)
PROC: 0DH63UZ Insertion of Feeding Device into Stomach, Percutaneous Approach (ICD-10-PCS; 2022-04-07)
PROC: 0BH17EZ Insertion of Endotracheal Airway into Trachea, Via Natural or Artificial Opening (ICD-10-PCS; 2022-04-12)
PROC: 5A1935Z Respiratory Ventilation, Less than 24 Consecutive Hours (ICD-10-PCS; 2022-04-12)
PROC: 06HY33Z Insertion of Infusion Device into Lower Vein, Percutaneous Approach (ICD-10-PCS; 2022-04-12)
PROC: 3E033XZ Introduction of Vasopressor into Peripheral Vein, Percutaneous Approach (ICD-10-PCS; 2022-04-12)
PROC: 04HY32Z Insertion of Monitoring Device into Lower Artery, Percutaneous Approach (ICD-10-PCS; 2022-04-12)
PROC: 3E04329 Introduction of Other Anti-infective into Central Vein, Percutaneous Approach (ICD-10-PCS; 2022-04-12)
DX: I63.311 Cerebral infarction due to thrombosis of right middle cerebral artery (principal); R29.714 NIHSS score 14; Z51.5 Encounter for palliative care; Z66 Do not resuscitate; Z20.822 Contact with and (suspected) exposure to COVID-19; A41.9 Sepsis, unspecified organism; G93.6 Cerebral edema; J69.0 Pneumonitis due to inhalation of food and vomit; G81.94 Hemiplegia, unspecified affecting left nondominant side; E87.0 Hyperosmolality and hypernatremia; E87.20 Acidosis, unspecified; E11.9 Type 2 diabetes mellitus without complications; F41.9 Anxiety disorder, unspecified; E78.5 Hyperlipidemia, unspecified; I16.0 Hypertensive urgency; I65.21 Occlusion and stenosis of right carotid artery; E78.00 Pure hypercholesterolemia, unspecified; F17.210 Nicotine dependence, cigarettes, uncomplicated; R47.01 Aphasia; I63.321 Cerebral infarction due to thrombosis of right anterior cerebral artery; R29.810 Facial weakness; R13.12 Dysphagia, oropharyngeal phase; K29.70 Gastritis, unspecified, without bleeding; R57.0 Cardiogenic shock; T78.3XXA Angioneurotic edema, initial encounter; T45.615A Adverse effect of thrombolytic drugs, initial encounter; Z78.1 Physical restraint status; Z88.8 Allergy status to other drugs, medicaments and biological substances; Z79.899 Other long term (current) drug therapy; Z90.710 Acquired absence of both cervix and uterus; Z90.89 Acquired absence of other organs
CPT/HCPCS: 36415; 36416; 36600; 37195; 70450; 70496; 70498; 70551; 71045; 71275; 74018; 80048; 80053; 80061; 81003; 81015; 82805; 83036; 83605; 83735; 83880; 83930; 83935; 84100; 84443; 84484; 85025; 85379; 85610; 85730; 87040; 87811; 93005; 93306; 93970; 94002; 94640; 95712; 95816; 95819; 95957; 96374; 96375; 96376; J0171; J0295; J0360; J1200; J1644; J1650; J1720; J1815; J2150; J2250; J2270; J2543; J2704; J2920; J2930; J3101; J3370; J3480; J3490; J7030; J7050; J7070; J7608; J7620; Q9967; S0028; U0002